=== PATIENT | female | born 2000 | race Two or more races ===

== ENCOUNTER 2024-03-29 07:51 | Emergency (ER) | payer MEDICAID, OTHER ==
[~2024-03-29] VITALS: Ht 167.6 cm; Wt 77.0 kg
[~2024-03-29 07:51] MED LIST: NO MEDICATIONS REPORTED
[2024-03-29 07:53] VITALS: O2SAT 99
[2024-03-29] MEDS: ONDANSETRON 4MG ODT PO ONE (08:27)
[2024-03-29 08:48] LABS: BASOPHILS % 0.6 % (0.0-2.0); EOSINOPHILS % 0.9 % (0.0-5.0); HEMATOCRIT. 39.3 % (36.0-48.0); HEMOGLOBIN. 12.6 g/dL (12.0-16.0); LYMPHOCYTES % 8.7 % (20.0-50.0); MEAN CORPUSCULAR HEMOGLOBIN 27.1 pg (28.0-32.0); MEAN CORPUSCULAR VOLUME 84.5 fL (81.0-99.0); MEAN PLATELET VOLUME 10.7 fl (7.4-10.4); MONOCYTES % 2.5 % (2.0-8.0); NEUTROPHILS % 87.3 % (40.0-76.0); PLATELET 188 x1000/uL (130-400); RED BLOOD CELL COUNT 4.64 mill/uL (4.2-5.4); WHITE BLOOD COUNT 9.5 x1000/uL (4.5-11.0)
[2024-03-29 08:58] LABS: CHLORIDE 111 mEq/L (98-107); POTASSIUM 3.7 mEq/L (3.5-5.1); SODIUM 139 mEq/L (136-145)
[2024-03-29 08:59] LABS: CARBON DIOXIDE 22 mEq/L (21-32)
[2024-03-29 09:00] LABS: CALCIUM 9.5 mg/dL (8.7-10.4)
[2024-03-29 09:04] LABS: CREATININE 0.6 mg/dL (0.6-1.0); GLUCOSE 99 mg/dL (70-105); UREA NITROGEN BLOOD 9 mg/dL (9-23)
[2024-03-29] MEDS: SODIUM CHLORIDE 0.9% 1,000 ML IV ONE (09:11)
[2024-03-29] MEDS: MECLIZINE 25MG TABLET PO ONE (10:04)
[2024-03-29 10:08] LABS: CLARITY URINE CLEAR (CLEAR); COLOR URINE YELLOW (YELLOW); GLUCOSE URINE NEGATIVE (NEGATIVE); KETONES URINE TRACE (NEGATIVE); LEUKOCYTE ESTERASE URINE NEGATIVE (NEGATIVE); NITRITE URINE NEGATIVE (NEGATIVE); OCCULT BLOOD URINE NEGATIVE (NEGATIVE); PROTEIN URINE NEGATIVE (NEGATIVE); SPECIFIC GRAVITY URINE 1.015 (1.005-1.030); UROBILINOGEN URINE 0.2 E.U./dL (0.2-1.0)
[2024-03-29 11:08] LABS: HCG SCREEN NEGATIVE
[2024-03-29] MEDS ORDERED: P50 MT (11:52)
[2024-03-29] MEDS ORDERED: MECL-299 MT (11:52)
[2024-03-29] MEDS ORDERED: ONDA4TAB50 MT (11:52)
[2024-03-29] MEDS ORDERED: MECL-217 MT (11:52)
[2024-03-29 11:55] VITALS: BP 122/74; PULSE 70; RESP 14; TEMP 36.89184; O2SAT 99
== END 2024-03-29 12:06 | disposition home or self-care (01) ==
LOC: ER 07:51
DX: R42 Dizziness and giddiness (principal)
CPT/HCPCS: 99283; 80048; 81003; 81025; 84703; 85025; 36415; J8597; Q0162; J7030